=== PATIENT | female | born 1990 | race Caucasian/White ===

== ENCOUNTER 2019-08-06 14:47 | Emergency (ER) | payer MEDICAID ==
[~2019-08-06] VITALS: Ht 152.4 cm; Wt 58.1 kg
[2019-08-06 14:53] VITALS: BP 113/79; Ht 152.4 cm; Wt 58.1 kg
== END 2019-08-06 15:11 | disposition home or self-care (01) ==
LOC: ED 14:47
DX: K04.7 Periapical abscess without sinus (principal)